=== PATIENT | male | born 1970 | race Caucasian/White ===

== ENCOUNTER 2020-10-01 11:57 | Inpatient (IN) | payer BC, OTHER ==
[2020-10-01] MEDS ORDERED: MORPHINE SULFATE 4 MG/ML SYRINGE IVP STA (12:41)
[2020-10-01 13:29] LABS: Basophils # (A) 0.1 k/uL (0-0.2); Basophils % (A) 1 %; Eosinophils # (A) 0.1 k/uL (0-0.7); Eosinophils % (A) 1 %; HCT 45.2 % (39.0-53.0); HGB 15.6 gm/dL (13.0-17.5); Lymphocytes # (A) 1.7 k/uL (1.0-4.8); Lymphocytes % (A) 12 %; MCH 29.9 pg (25.0-35.0); MCHC 34.4 g/dL (31.0-37.0); MCV 86.8 fL (80.0-100.0); Mean Platelet Volume 6.3; Monocytes # (A) 0.7 k/uL (0-1.0); Monocytes % (A) 5 %; Neutrophils # (A) 10.8 k/uL (1.3-7.7); Neutrophils % (A) 80 %; Platelet Count 361 k/uL (150-450); RBC 5.21 m/uL (4.30-5.90); RDW 12.9 % (11.5-15.5); WBC 13.4 k/uL (3.8-10.6)
[2020-10-01 13:43] LABS: ALT 20 U/L (4-49); AST 24 U/L (17-59); African American GFR (CKD) >90 (>60 ml/min/1.73 sqM); Albumin 4.4 g/dL (3.5-5.0); Alkaline Phosphatase 122 U/L (38-126); Anion Gap 10 mmol/L; Blood Urea Nitrogen 13 mg/dL (9-20); Calcium 9.1 mg/dL (8.4-10.2); Carbon Dioxide 28 mmol/L (22-30); Chloride 102 mmol/L (98-107); Glucose 92 mg/dL (74-99); Non-African American GFR(CKD) >90 (>60 ml/min/1.73 sqM); Potassium 4.3 mmol/L (3.5-5.1); Sodium 140 mmol/L (137-145); Total Bilirubin 0.6 mg/dL (0.2-1.3); Total Protein 7.4 g/dL (6.3-8.2)
--- NOTE | 2020-10-01 14:54 | CT ---
EXAMINATION TYPE: CT soft tissue neck w con DATE OF EXAM: 10/01/2020 COMPARISON: None HISTORY: Dental infection right side CT DLP: 699.1 mGycm CONTRAST: CT scan of the neck is performed with IV Contrast, patient injected with 100 mL of Isovue 300. Contrast enhanced CT of the neck was performed from the skull base through the lung apices. There is soft tissue swelling noted adjacent to the right hemimandible. There is also soft tissue swe lling identified involving the base of the tongue on the right. I do not see evidence for drainable a bscess at this time. There is absence of the right second molar with dental caries are noted. No evid ence for bone destruction. No periosteal abscess appreciated at this time. AIRWAY: The supraglottic, glottic, and subglottic portions of the airway appear patent and free of mass. SALIVARY GLANDS: The submandibular and parotid glands are free of mass or inflammatory process. THYROID GLAND: No nodules or masses seen. LYMPH NODES: Enlarged reactive lymph nodes are seen adjacent to the right submandibular gland measuri ng 1.3 cm short axis as well as within the right internal jugular chain measuring 1.5 cm in short axi s. LUNG APICES: No nodule or mass is seen. OTHER: Vascular structures are patent. No significant degenerative change of the cervical spine. N o abscess seen. Incidental arachnoid cyst left posterior fossa. IMPRESSION: 1. Soft tissue edema adjacent to the right mandible at the level of the right second molar which appe ars to be missing and there appear to be changes of dental caries. There is edema at the base of the tongue on the right. There is also reactive adenopathy as noted above. No drainable abscess visualize d at this time.
[2020-10-01] MEDS ORDERED: ACETAMINOPHEN TAB 500 MG TAB PO STA (15:07)
[2020-10-01] MEDS ORDERED: AMPICILLIN-SULBACTAM 3 GM in SODIUM CHLORIDE 0.9% 100 ML IVPB STA (15:07)
[2020-10-01] MEDS ORDERED: SODIUM CHLORIDE 0.9% 1,000 ML IV STA (15:07)
--- NOTE | 2020-10-01 15:08 | ED ---
General Adult HPI - General Source: patient Mode of arrival: ambulatory Limitations: no limitations <Varun Rosado - Last Filed: 10/01/20 15:47> <Santiago Thomas - Last Filed: 10/03/20 21:17> - General Chief complaint: Recheck/Abnormal Lab/Rx Stated complaint: dental infection Time Seen by Provider: 10/01/20 12:31 - History of Present Illness Initial comments: Patient is a 49-year-old male that presents to emergency department with a possible oral dental infection. He notes that he had too distracted by Dr. Diamond last week failed outpatient antibiotic therapy. He notes that he has continued pain and radiation of pain into his jaw. He did appear to be in moderate distress and pain while sitting up in a chair during the exam interview. He notes that he just wants relief from the pain. He notes that he can still eat and drink without difficulty. He denied any other complaints or issues. He denied chest pain first breath headache nausea found diarrhea constipation fever fatigue chills. (Varun Rosado) - Related Data Home Medications Medication Instructions Recorded Confirmed Acetaminophen [Tylenol] 1,000 mg PO Q6H PRN 10/01/20 10/01/20 Amoxicillin 875 - 1,750 mg PO Q12HR 10/01/20 10/01/20 Chlorhexidine Gluconate [Peridex] 15 ml PO BID 10/01/20 10/01/20 Allergies Allergy/AdvReac Type Severity Reaction Status Date / Time No Known Allergies Allergy Verified 10/01/20 13:39 Review of Systems ROS Other: All systems not noted in ROS Statement are negative. <Varun Rosado - Last Filed: 10/01/20 15:47> ROS Other: All systems not noted in ROS Statement are negative. <Santiago Thomas - Last Filed: 10/03/20 21:17> ROS Statement: Those systems with pertinent positive or pertinent negative responses have been documented in the HPI. Past Medical History Past Medical History: No Reported History History of Any Multi-Drug Resistant Organisms: None Reported Past Surgical History: Orthopedic Surgery Additional Past Surgical History / Comment(s): RT ANKLE SX Past Anesthesia/Blood Transfusion Reactions: No Reported Reaction Past Psychological History: No Psychological Hx Reported Smoking Status: Former smoker Past Alcohol Use History: Occasional Past Drug Use History: None Reported <Varun Rosado - Last Filed: 10/01/20 15:47> General Exam Limitations: no limitations General appearance: alert, in no apparent distress Head exam: Present: atraumatic, normocephalic, normal inspection Eye exam: Present: normal appearance, PERRL, EOMI. Absent: scleral icterus, conjunctival injection, periorbital swelling ENT exam: Present: normal exam, mucous membranes moist, other (Halitosis) Expanded Mouth exam: Present: normal external inspection. Absent: drooling, trismus, muffled voice, tongue normal, tongue elevation Teeth exam: Present: dental caries (Multiple). Absent: normal inspection (Poor dentition) Neck exam: Present: normal inspection Respiratory exam: Present: normal lung sounds bilaterally. Absent: respiratory distress, wheezes, rales, rhonchi, stridor Cardiovascular Exam: Present: regular rate, normal rhythm, normal heart sounds. Absent: systolic murmur, diastolic murmur, rubs, gallop, clicks Extremities exam: Present: normal inspection, full ROM, normal capillary refill. Absent: tenderness, pedal edema, joint swelling, calf tenderness Neurological exam: Present: alert, oriented X3 Psychiatric exam: Present: normal affect, normal mood Skin exam: Present: warm, dry, intact, normal color. Absent: rash <Varun Rosado - Last Filed: 10/01/20 15:47> Course <Varun Rosado - Last Filed: 10/01/20 15:47> Vital Signs 10/01/20 10/01/20 10/01/20 12:20 15:00 17:00 Temperature 102 F H 100 F H 97.1 F L Pulse Rate 104 H 83 67 Respiratory 16 18 18 Rate Blood Pressure 127/83 124/76 125/71 O2 Sat by Pulse 100 99 99 Oximetry 10/01/20 10/01/20 20:28 22:15 Temperature 97.9 F 98.3 F Pulse Rate 68 61 Respiratory 17 16 Rate Blood Pressure 114/79 100/56 O2 Sat by Pulse 97 99 Oximetry - Reevaluation(s) Reevaluation #1: 10/01/20 15:08 Sepsis called at 308 PM, blood cultures were ordered Unasyn 3 g IV piggyback 1 L normal saline (Varun Rosado) Medical Decision Making - Lab Data Result diagrams: 10/01/20 13:07 10/01/20 13:07 - Radiology Data Radiology results: report reviewed, image reviewed <Varun Rosado - Last Filed: 10/01/20 15:47> - Lab Data Result diagrams: 10/02/20 05:28 10/01/20 19:57 <Santiago Thomas - Last Filed: 10/03/20 21:17> - Medical Decision Making 49-year-old male complaining of increased mouth pain after a tooth extraction last week. Labs, CT of the soft tissue of the neck, formula grams of morphine ordered. Labs showed elevated white count of 13.5. CT showed soft tissue edema and several reactive lymph nodes. Sepsis protocol called at 3:08 bpm with blood cultures IV antibiotics Unasyn 3 g Benadryl fluids. Case discussed with Dr. Thomas, patient will be admitted to the hospital for inpatient therapy. As he did fail outpatient antibiotic therapy Dr. Burris consulted and will except the admit with Dr. Diamond on consult (Varun Rosado) The patient was seen and examined. All diagnostics were reviewed. It does not appear as though he has an abscess that is drainable. He does have significant swelling in his right submandibular region. He has difficulty opening his mouth with tenderness at the base of his right tongue. His posterior oropharynx is clear. Airways patent. It appears that he has failed outpatient treatment with amoxicillin. He was sent in by his oral surgeon for further evaluation. He also has significant pain that has not been resolved with Tylenol and Motrin. He is given morphine as well as Unasyn. It is felt as though he would benefit from inpatient IV antibiotic treatment and pain relief. A page has been placed to Dr. Diamond from oral surgery and we are currently awaiting his call back. Case will be admitted to internal medicine. 2 Dr. Diamond did later called back and case is discussed with him and he is happy with current plan of treatment. (Santiago Thomas) - Lab Data Lab Results 10/01/20 10/01/20 10/01/20 Range/Units 13:07 13:07 13:07 WBC 13.4 H (3.8-10.6) k/uL RBC 5.21 (4.30-5.90) m/uL Hgb 15.6 (13.0-17.5) gm/dL Hct 45.2 (39.0-53.0) % MCV 86.8 (80.0-100.0) fL MCH 29.9 (25.0-35.0) pg MCHC 34.4 (31.0-37.0) g/dL RDW 12.9 (11.5-15.5) % Plt Count 361 (150-450) k/uL MPV 6.3 Neutrophils % 80 % Lymphocytes % 12 % Monocytes % 5 % Eosinophils % 1 % Basophils % 1 % Neutrophils # 10.8 H (1.3-7.7) k/uL Lymphocytes # 1.7 (1.0-4.8) k/uL Monocytes # 0.7 (0-1.0) k/uL Eosinophils # 0.1 (0-0.7) k/uL Basophils # 0.1 (0-0.2) k/uL ESR 58 H (0-15) mm/hr Sodium 140 (137-145) mmol/L Potassium 4.3 (3.5-5.1) mmol/L Chloride 102 (98-107) mmol/L Carbon Dioxide 28 (22-30) mmol/L Anion Gap 10 mmol/L BUN 13 (9-20) mg/dL Creatinine 0.67 (0.66-1.25) mg/dL Est GFR (CKD-EPI)AfAm >90 (>60 ml/min/1.73 sqM) Est GFR (CKD-EPI)NonAf >90 (>60 ml/min/1.73 sqM) Glucose 92 (74-99) mg/dL Plasma Lactic Acid Ravi 0.9 (0.7-2.0) mmol/L Calcium 9.1 (8.4-10.2) mg/dL Total Bilirubin 0.6 (0.2-1.3) mg/dL AST 24 (17-59) U/L ALT 20 (4-49) U/L Alkaline Phosphatase 122 (38-126) U/L Total Protein 7.4 (6.3-8.2) g/dL Albumin 4.4 (3.5-5.0) g/dL - Radiology Data CT of the soft tissue neck: Soft tissue edema adjacent the right mandible at the level of the right second molar which appears to be missing and there appeared to be changes of dental caries. There is edema at the base the tongue on the right there is also reactive adenopathy as noted above. No drainable abscess visualized at this time. (Varun Rosado) Disposition Is patient prescribed a controlled substance at d/c from ED?: No Time of Disposition: 15:55 <Varun Rosado - Last Filed: 10/01/20 15:47> <Santiago Thomas - Last Filed: 10/03/20 21:17> Clinical Impression: Dental infection, Therapy failure due to antibiotic resistance Disposition: ADMITTED IP TO THIS HOSP Condition: Stable
[2020-10-01 15:34] LABS: Erythrocyte Sedimentation Rate 58 mm/hr (0-15)
[2020-10-01] MEDS ORDERED: ONDANSETRON 4 MG/2 ML VIAL IVP PRN (15:53)
[2020-10-01] MEDS ORDERED: MORPHINE SULFATE 4 MG/ML SYRINGE IV PRN (15:53)
[2020-10-01] MEDS ORDERED: NALOXONE 0.4 MG/ML 1 ML VIAL IV PRN (15:53)
[2020-10-01] MEDS: SODIUM CHLORIDE 0.9% 1,000 ML IV SCH (16:31)
--- NOTE | 2020-10-01 20:12 | HP ---
HISTORY AND PHYSICAL DATE OF SERVICE: 10/01/2020. CHIEF COMPLAINT: Pain and swelling of the right side of the face. HISTORY OF PRESENT ILLNESS: This 49-year-old gentleman with a past medical history of no significant medical issues had a cracked tooth and the patient had a tooth extraction of the right lower molar teeth by Dr. Diamond on , but subsequently patient was on p.o. antibiotics but the patient developed progressive swelling and pain and because of lack of improvement, patient came to [facility] and admitted for evaluation and treatment. The patient unable to eat anything or even open the mouth at this time. The patient is started on IV Unasyn. A CT scan of the soft tissue of the neck was done which showed evidence of soft tissue edema adjacent to the right mandible and also changes of dental caries. There is also adenopathy noted. There is no history of fever, rigors, chills at this time. PAST MEDICAL HISTORY: No significant cardiovascular issues. PAST SURGICAL HISTORY: Right ankle surgery. MEDICATIONS: Home medications are Peridex and Tylenol, amoxicillin. ALLERGIES: None. FAMILY HISTORY: No history of heart disease or strokes in the family. SOCIAL HISTORY: Previous history of smoking. No history of current smoking or alcohol. REVIEW OF SYSTEMS: ENT as mentioned earlier. CARDIOVASCULAR: No angina or palpitations. RESPIRATION: As mentioned earlier. GI no nausea or vomiting. no dysuria. NERVOUS system: No numbness, weakness. ALLERGY/IMMUNOLOGY: No asthma or hayfever. MUSCULOSKELETAL as mentioned earlier. HEMATOLOGY/ONCOLOGY: No history of anemia. ENDOCRINE: No history of diabetes or hypothyroidism. CONSTITUTIONAL: As mentioned earlier. DERMATOLOGY: Negative. RHEUMATOLOGY negative. PSYCHIATRY as mentioned earlier. PHYSICAL EXAMINATION: Alert and oriented times two. Pulse is 67. Blood pressure is 120/71, respiration 18, temperature 102 degrees, pulse ox 99 percent on room air. HEENT: Conjunctivae normal. NECK: No JVD. CARDIOVASCULAR: S1, S2 muffled. RESPIRATORY: Breath sounds diminished in the bases. No rhonchi. No crackles. ABDOMEN: Soft, nontender. LEGS are no edema. No swelling. NERVOUS SYSTEM: Higher functions as mentioned earlier. Moves all four extremities. No focal motor or sensory deficits. LYMPHATICS: Significant lymphadenopathy in the right submandibular area present. Some swelling of the neck also present. Local tenderness also appreciated and the patient is unable to open the jaw with some trismus also because of the significant swelling and pain and cellulitis. JOINTS: No active deforming arthropathy. LAB: WBC 13.4. Other labs are noted. ASSESSMENT: 1. Possible right dental caries and abscess with possible early sepsis present on admission. 2. Severe pain, inability to open the jaw. 3. Increased WBC. 4. History of recent tooth extraction. 5. History of right ankle surgery. 6. Remote history of nicotine dependence. 7. FULL CODE. RECOMMENDATIONS AND DISCUSSION: This 49-year-old gentleman who presented with multiple complex medical issues, we will monitor the patient closely. Continue the current medications, management, symptomatic treatment. Initiate IV Unasyn. Symptomatic treatment of the pain. Repeat labs, cultures. I would also obtain an infectious disease evaluation by Dr. Rodríguez. Prognosis guarded because of multiple complex medical issues. Further recommendations to follow. A copy of dictation being forwarded to Dr. Thibodeaux who is the primary physician. MMODL / IJN: [id number] /
[2020-10-01 20:22] LABS: ALT 19 U/L (4-49); AST 26 U/L (17-59); African American GFR (CKD) >90 (>60 ml/min/1.73 sqM); Albumin 3.7 g/dL (3.5-5.0); Albumin/Globulin Ratio 1.4; Alkaline Phosphatase 97 U/L (38-126); Anion Gap 9 mmol/L; Blood Urea Nitrogen 11 mg/dL (9-20); Calcium 8.5 mg/dL (8.4-10.2); Carbon Dioxide 24 mmol/L (22-30); Chloride 104 mmol/L (98-107); Globulin 2.7 g/dL; Glucose 131 mg/dL (74-99); Non-African American GFR(CKD) >90 (>60 ml/min/1.73 sqM); Potassium 3.6 mmol/L (3.5-5.1); Sodium 137 mmol/L (137-145); Total Bilirubin 0.5 mg/dL (0.2-1.3); Total Protein 6.4 g/dL (6.3-8.2)
[2020-10-01] MEDS: KETOROLAC 15 MG/ML 1 ML VIAL IVP SCH (20:22)
[2020-10-01] MEDS: PANTOPRAZOLE 40 MG/10 ML VIAL IVP SCH (20:23)
[2020-10-01] MEDS: AMPICILLIN-SULBACTAM 3 GM in SODIUM CHLORIDE 0.9% 100 ML IVPB SCH (20:24)
[2020-10-01] MEDS: HEPARIN SODIUM,PORCINE/PF 5,000 UNIT/0.5 ML SYRINGE SQ SCH (20:26)
[2020-10-01] MEDS: HYDROmorphone 0.5 MG/0.5 ML SYRINGE IVP PRN (23:17)
[2020-10-02] MEDS: KETOROLAC 15 MG/ML 1 ML VIAL IVP SCH ×4 (02:26→20:16)
[2020-10-02] MEDS: AMPICILLIN-SULBACTAM 3 GM in SODIUM CHLORIDE 0.9% 100 ML IVPB SCH ×4 (02:27→21:17)
[2020-10-02] MEDS: HYDROmorphone 0.5 MG/0.5 ML SYRINGE IVP PRN ×3 (02:28→19:43)
[2020-10-02] MEDS: SODIUM CHLORIDE 0.9% 1,000 ML IV SCH ×2 (05:25→18:48)
[2020-10-02 05:44] LABS: Basophils # (A) 0.1 k/uL (0-0.2); Basophils % (A) 1 %; Eosinophils # (A) 0.2 k/uL (0-0.7); Eosinophils % (A) 3 %; HCT 43.5 % (39.0-53.0); HGB 14.1 gm/dL (13.0-17.5); Lymphocytes % (A) 30 %; MCH 29.1 pg (25.0-35.0); MCHC 32.3 g/dL (31.0-37.0); MCV 89.9 fL (80.0-100.0); Mean Platelet Volume 6.2; Monocytes # (A) 0.4 k/uL (0-1.0); Monocytes % (A) 6 %; Neutrophils % (A) 59 %; Platelet Count 315 k/uL (150-450); RBC 4.84 m/uL (4.30-5.90); RDW 13.4 % (11.5-15.5); WBC 6.8 k/uL (3.8-10.6)
[2020-10-02] MEDS: HEPARIN SODIUM,PORCINE/PF 5,000 UNIT/0.5 ML SYRINGE SQ SCH ×2 (07:36→21:18)
[2020-10-02] MEDS: PANTOPRAZOLE 40 MG/10 ML VIAL IVP SCH (07:36)
[2020-10-02] MEDS: DEXAMETHASONE SOD PHOSPHATE 10 MG/ML 1 ML VIAL IV SCH ×2 (14:49→21:17)
--- NOTE | 2020-10-02 16:18 | P.PN ---
Subjective Patient is admitted at for sepsis secondary to Chris's angina. Patient is on IV Unasyn. Maxillofacial surgery evaluated the patient did not recommending any emergent surgical intervention. Patient had right second molar that was extracted. Patient had dental carries and the site second molar appears to be source of infection, started as mandibular abscesses subsequently Luwig's angina with reactive adenopathy. Patient was smoking until before sepsis. Constitutional: Denied any fatigue denied any fever. Cardio vascular: denied any chest pain, palpitations Gastrointestinal denied any nausea vomiting Pulmonary: Denied any shortness of breath cough Neurologic denied any new focal deficits All inpatient medications were reviewed and appropriate changes in these medications as dictated in the interval history and assessment and plan. Objective - Vital Signs Vital signs: Vital Signs Temp 98.3 F 10/02/20 14:32 Pulse 77 10/02/20 14:32 Resp 17 10/02/20 14:32 BP 131/84 10/02/20 14:32 Pulse Ox 97 10/02/20 14:32 Intake & Output 10/01/20 10/02/20 10/02/20 18:59 06:59 18:59 Intake Total 800 Output Total 300 Balance -300 800 Weight 100.698 kg 100.698 kg Intake: Intake, IV Titration 800 Amount Ampicillin-Sulbactam 3 gm 200 In Sodium Chloride 0.9% 100 ml @ 200 mls/hr IVPB Q6H [facility] Rx#:[id number] Sodium Chloride 0.9% 1, 600 000 ml @ 75 mls/hr IV . [id number] [facility] Rx#:[id number] Output: Urine 300 - Exam PHYSICAL EXAMINATION: GENERAL: The patient is alert and oriented x3, not in any acute distress. Well developed, well nourished. HEENT: Pupils are round and equally reacting to light. EOMI. No scleral icterus. No conjunctival pallor. Normocephalic, atraumatic. Patient has a swelling of right jaw region as well as swelling underneath the tongue and submental swelling. No thyromegaly. CARDIOVASCULAR: S1 and S2 present. No murmurs, rubs, or gallops. PULMONARY: Chest is clear to auscultation, no wheezing or crackles. ABDOMEN: Soft, nontender, nondistended, normoactive bowel sounds. No palpable organomegaly. MUSCULOSKELETAL: No joint swelling or deformity. EXTREMITIES: No cyanosis, clubbing, or pedal edema. NEUROLOGICAL: Gross neurological examination did not reveal any focal deficits. SKIN: No rashes. - Labs CBC & Chem 7: 10/02/20 05:28 10/01/20 19:57 Labs: Abnormal Lab Results - Last 24 Hours (Table) 10/01/20 Range/Units 19:57 Creatinine 0.53 L (0.66-1.25) mg/dL Glucose 131 H (74-99) mg/dL Assessment and Plan Plan: -Sepsis secondary to mandibular abscess and Chris's angina. Continue Unasyn maxillofacial surgery evaluated the patient today patient was also started on Decadron Toradol and morphine for pain -GI prophylaxis with the Protonix
[2020-10-02] MEDS: HYDROcodone/APAP 5-325MG 1 EACH TAB PO PRN (21:17)
[2020-10-03] MEDS: KETOROLAC 15 MG/ML 1 ML VIAL IVP SCH ×4 (02:09→20:08)
[2020-10-03] MEDS: AMPICILLIN-SULBACTAM 3 GM in SODIUM CHLORIDE 0.9% 100 ML IVPB SCH ×4 (03:09→21:09)
--- NOTE | 2020-10-03 06:17 | CONS ---
CONSULTATION DATE OF SERVICE: 10/02/2020 REASON FOR CONSULTATION: Lower right jaw infection. HISTORY OF PRESENT ILLNESS: The patient is a 49-year-old male who recently did have a right lower jaw tooth extraction by Dr. Diamond and this patient did have significant infected tooth. The patient mentioned still having more swelling, pain and redness to the right lower jaw and right upper neck area for which the patient has been treated with oral amoxicillin which the patient has taken since last that is about 4-5 days. However the patient did not have any improvement and has been evaluated by the oral surgeon on multiple occasions. Yesterday, the patient did have significant swelling and pain. The patient described the pain to be throbbing, intensity almost 7 to 8 out of 10 and no radiation. Denies having any drainage from the area and has been complaining of fever and chills. The patient was subsequently sent to the ER. On arrival to the ER, the patient did have fever of 102 Fahrenheit. The patient did not have significant tachycardia. He did have a white count of 13.4 with a left shift. Kidney function was normal. The patient did have a CT of the soft tissue of the neck which did show soft tissue edema adjacent to the right mandible at the level of the right 2nd molar, which appears to be missing and changes of dental caries, now with evidence of reactive neuropathy, patient has been treated with Unasyn. Infectious Disease was consulted for further management of antibiotic therapy. REVIEW OF SYSTEMS: Positive points have been mentioned in HPI. Rest of systems are negative. PAST MEDICAL HISTORY: No major illnesses. PAST SURGICAL HISTORY: Right ankle fracture repair. SOCIAL HISTORY: Remote history of smoking. Occasionally drinks. No drug use. FAMILY HISTORY: No pertinent findings noticed. ALLERGIES: No known drug allergies. MEDICATIONS: The patient is currently on Kouts, Unasyn 3 grams q.6 hours, Decadron, Heparin, Dilaudid, Toradol, Narcan, Zofran, Protonix, and IV fluid. PHYSICAL EXAMINATION: Blood pressure is 106/66, pulse of 74, temperature 98.3. He is 97% on room air. GENERAL DESCRIPTION: The patient is a middle-aged male lying in bed in no distress. No tachypnea or accessory muscles of respiration use. HEENT: Examination shows no pallor or scleral icterus. Examination of the oral cavity did have swelling to the right lower jaw area. Also with swelling to the right side of the neck, but no fluctuation or induration. NECK: Trachea midline. No thyromegaly. LUNGS unlabored breathing, decreased intensity of the breath sounds. No wheeze or crackles. HEART S1, S2. Regular rate and rhythm. ABDOMEN: Soft, no tenderness. EXTREMITIES: No edema of the feet. SKIN examination: No rash or mass palpable. NEUROLOGICAL: Patient is awake, alert, oriented x3. Mood and affect normal. LABS: Hemoglobin is 15.6, white count 13.4 on admission. BUN of 92, creatinine 0.9. CT report mentioned above. DIAGNOSTIC IMPRESSION AND PLAN: Patient admitted to the hospital with extensive dental infection secondary to extraction of the right 2nd molar tooth, failing outpatient oral amoxicillin therapy. Likely disease with no evidence of any drainable abscess on the CT. PLAN: 1. We will keep the patient on Unasyn 3 grams q.6 hours to continue for another 24 hours. 2. Gentle IV fluid. 3. We will follow on his condition and further adjust medication if needed. Thank you for this consultation. Will follow this patient along with you. MMODL / IJN: [id number] /
[2020-10-03] MEDS: HEPARIN SODIUM,PORCINE/PF 5,000 UNIT/0.5 ML SYRINGE SQ SCH ×2 (08:03→21:09)
[2020-10-03] MEDS: PANTOPRAZOLE 40 MG/10 ML VIAL IVP SCH (08:03)
[2020-10-03] MEDS: DEXAMETHASONE SOD PHOSPHATE 10 MG/ML 1 ML VIAL IV SCH (08:03)
[2020-10-03] MEDS: SODIUM CHLORIDE 0.9% 1,000 ML IV SCH ×2 (08:05→21:20)
[2020-10-03] MEDS: HYDROcodone/APAP 5-325MG 1 EACH TAB PO PRN ×2 (12:24→21:08)
--- NOTE | 2020-10-03 13:57 | P.PN ---
Subjective Patient is admitted at for sepsis secondary to Chris's angina. Patient is on IV Unasyn. Maxillofacial surgery evaluated the patient did not recommending any emergent surgical intervention. Patient had right second molar that was extracted. Patient had dental carries and the site second molar appears to be source of infection, started as mandibular abscesses subsequently Luwig's angina with reactive adenopathy. Patient was smoking until before sepsis. 10/03/2020 Patient doesn't have any drainable abscess in that the time although does have significant swelling and inflammation under the tongue. Patient will be continued on Decadron and Unasyn patient has significant improvement compared to yesterday. Patient will be continued on IV antibiotics for today possibly of discharge on Wednesday of oral antibiotics. Constitutional: Denied any fatigue denied any fever. Cardio vascular: denied any chest pain, palpitations Gastrointestinal denied any nausea vomiting Pulmonary: Denied any shortness of breath cough Neurologic denied any new focal deficits All inpatient medications were reviewed and appropriate changes in these medications as dictated in the interval history and assessment and plan. Objective - Vital Signs Vital signs: Vital Signs Temp 98.3 F 10/03/20 07:08 Pulse 63 10/03/20 07:08 Resp 18 10/03/20 07:08 BP 126/79 10/03/20 07:08 Pulse Ox 99 10/03/20 07:08 Intake & Output 10/02/20 10/03/20 10/03/20 18:59 06:59 18:59 Intake Total 800 200 Balance 800 200 Intake: Intake, IV Titration 800 200 Amount Ampicillin-Sulbactam 3 gm 200 200 In Sodium Chloride 0.9% 100 ml @ 200 mls/hr IVPB Q6H [facility] Rx#:[id number] Sodium Chloride 0.9% 1, 600 000 ml @ 75 mls/hr IV . [id number] [facility] Rx#:[id number] Other: # Voids 3 - Exam PHYSICAL EXAMINATION: GENERAL: The patient is alert and oriented x3, not in any acute distress. Well developed, well nourished. HEENT: Pupils are round and equally reacting to light. EOMI. No scleral icterus. No conjunctival pallor. Normocephalic, atraumatic. Patient has a swelling of right jaw region as well as swelling underneath the tongue and submental swelling which significantly improved compared to yesterday. No thyromegaly. CARDIOVASCULAR: S1 and S2 present. No murmurs, rubs, or gallops. PULMONARY: Chest is clear to auscultation, no wheezing or crackles. ABDOMEN: Soft, nontender, nondistended, normoactive bowel sounds. No palpable organomegaly. MUSCULOSKELETAL: No joint swelling or deformity. EXTREMITIES: No cyanosis, clubbing, or pedal edema. NEUROLOGICAL: Gross neurological examination did not reveal any focal deficits. SKIN: No rashes. - Labs CBC & Chem 7: 10/02/20 05:28 10/01/20 19:57 Labs: Microbiology - Last 24 Hours (Table) 10/01/20 15:16 Blood Culture - Preliminary Blood No Growth after 24 hours 10/01/20 15:16 Blood Culture - Preliminary Blood No Growth after 24 hours Assessment and Plan Plan: -Sepsis secondary to mandibular abscess and Chris's angina without any significant drainable abscess. Continue Unasyn maxillofacial surgery evaluated the patient today patient is also started on Decadron Toradol and morphine for pain. Patient is independent improvement since admission. -GI prophylaxis with the Protonix
--- NOTE | 2020-10-03 17:52 | PN ---
PROGRESS NOTE DATE OF SERVICE: 10/03/2020 REASON FOR FOLLOWUP: Right lower jaw infection. INTERVAL HISTORY: Patient is afebrile. The patient denies cough. Nausea has decreased. The patient denies having any chest pain. No shortness of breath. No abdominal pain, no diarrhea. PHYSICAL EXAMINATION: Blood pressure 126/79, pulse of 73, temperature 98.3. He is 99% on room air. The patient is a middle-aged male up in the bed in no distress. HEENT examination: Right lower jaw swelling has decreased. Lungs unlabored, breathing clear to auscultation anteriorly. Heart S1, S2. Regular rate and rhythm. LABS: Hemoglobin is 40, ( ) 6.8. Blood culture has been negative. DIAGNOSTIC IMPRESSION AND PLAN: Patient with right lower jaw infection with infected tooth has been removed. No evidence of any abscess. We will keep the patient on IV Unasyn for 24 to 48 hours for transition to oral antibiotics and continue supportive care. MMODL / IJN: [id number] /
[2020-10-04] MEDS: KETOROLAC 15 MG/ML 1 ML VIAL IVP SCH ×2 (03:06→08:20)
[2020-10-04] MEDS: AMPICILLIN-SULBACTAM 3 GM in SODIUM CHLORIDE 0.9% 100 ML IVPB SCH ×2 (03:07→08:20)
[2020-10-04 07:57] VITALS: BP 122/80; PULSE 65; RESP 18; TEMP 97.6
[2020-10-04] MEDS: HEPARIN SODIUM,PORCINE/PF 5,000 UNIT/0.5 ML SYRINGE SQ SCH (08:21)
[2020-10-04] MEDS: PANTOPRAZOLE 40 MG/10 ML VIAL IVP SCH (08:21)
[2020-10-04] MEDS: SODIUM CHLORIDE 0.9% 1,000 ML IV SCH (13:54)
--- NOTE | 2020-10-04 16:44 | PN ---
PROGRESS NOTE DATE OF SERVICE: 10/04/2020 REASON FOR FOLLOWUP: Right lower jaw dental infection. INTERVAL HISTORY: Patient is afebrile. The patient overall right lower jaw pain and swelling has improved. No chest pain, shortness of breath or cough. No abdominal pain, no diarrhea. PHYSICAL EXAMINATION: Blood pressure 122/80 with a pulse of 65, temperature is 97.6. He is 98% on room air. General description is a middle-aged male up in the room in no distress. HEENT examination: Right lower jaw swelling has improved. Lungs: Unlabored breathing, clear to auscultation. Heart: S1, S2. Regular rate and rhythm. Abdomen soft, no tenderness. LABS: No new labs have been obtained today. Blood culture has been negative. DIAGNOSTIC IMPRESSION AND PLAN: Patient with right lower jaw dental infection status post extraction of that tooth. Overall improvement on Unasyn, finishing therapy with oral Augmentin 875 mg twice a day for 2 weeks. Prescription sent to the pharmacy. MMODL / IJN: [id number] /
--- NOTE | 2020-10-12 01:32 | P.DS ---
Providers Date of admission: 10/01/20 15:50 Expected date of discharge: 10/04/20 Attending physician: Roz Burris Consults: 10/01/20 15:54 Consult Physician Stat Consulting Provider: Luis Armando Diamond Consult Reason/Comments: dental infection Do you want consulting provider notified?: Yes 10/01/20 19:44 Consult Physician Routine Consulting Provider: Atif Rodríguez Consult Reason/Comments: dental infection, sepsis Do you want consulting provider notified?: Yes Primary care physician: [facility] Course: Patient is admitted at for sepsis secondary to Chris's angina. Patient is on IV Unasyn. Maxillofacial surgery evaluated the patient did not recommending any emergent surgical intervention. Patient had right second molar that was extracted. Patient had dental carries and the site second molar appears to be source of infection, started as mandibular abscesses subsequently Luwig's angina with reactive adenopathy. Patient was smoking until before sepsis. 10/03/2020 Patient doesn't have any drainable abscess in that the time although does have significant swelling and inflammation under the tongue. Patient will be continued on Decadron and Unasyn patient has significant improvement compared to yesterday. Patient will be continued on IV antibiotics for today possibly of discharge on Wednesday of oral antibiotics. -Sepsis secondary to mandibular abscess and Chris's angina without any significant drainable abscess. Continue Unasyn maxillofacial surgery evaluated the patient today patient is also started on Decadron Toradol and morphine for pain. Patient is independent improvement since admission. -GI prophylaxis with the Protonix Patient Condition at Discharge: Stable Plan - Discharge Summary New Discharge Prescriptions: New Amoxicillin/Potassium Clav [Augmentin 875-125 Tablet] 1 tab PO Q12HR 14 Days #28 tab Continue Chlorhexidine Gluconate [Peridex] 15 ml PO BID Acetaminophen [Tylenol] 1,000 mg PO Q6H PRN PRN Reason: Pain Discontinued Amoxicillin 875 - 1,750 mg PO Q12HR Discharge Medication List Acetaminophen [Tylenol] 1,000 mg PO Q6H PRN 10/01/20 [History] Chlorhexidine Gluconate [Peridex] 15 ml PO BID 10/01/20 [History] Amoxicillin/Potassium Clav [Augmentin 875-125 Tablet] 1 tab PO Q12HR 14 Days #28 tab 06/25/21 [Rx] Patient Instructions/Handouts: Dental Abscess (ED) Discharge Disposition: HOME SELF-CARE
== END 2020-10-04 14:39 | disposition home or self-care (01) | DRG 872 ==
LOC: EC 11:57 → 5NMEDONC 15:50 → 4SSUR 10-02 01:30
PROVIDERS: ADMIT Hospitalist; ATTEND Hospitalist
DX: A41.9 Sepsis, unspecified organism (principal); K12.2 Cellulitis and abscess of mouth; K02.9 Dental caries, unspecified; K03.81 Cracked tooth; K04.7 Periapical abscess without sinus; M27.2 Inflammatory conditions of jaws; Z87.891 Personal history of nicotine dependence; Z20.822 Contact with and (suspected) exposure to COVID-19
CPT/HCPCS: 36415; 70491; 80053; 83605; 85025; 85652; 87040; 87635; 96361; 96365; 96375; 96376; 99284